=== PATIENT | male | born 1985 | race Caucasian/White ===

== ENCOUNTER 2016-08-08 21:49 | Emergency (ER) | payer OTHER ==
[~2016-08-08] VITALS: Ht 172.7 cm; Wt 88.5 kg
[~2016-08-08 21:49] MED LIST: BACTRIM,SEPT1 TABLET PO; LORTAB 5-325 M1 EACH PO; METHADONE10 MG PO; NAPROSYN500 MG PO; NOHOMEMEDS; NORCO 5/3251 TABLET PO; ULTRACET1 TABLET PO
[2016-08-08 22:38] LABS: HEMATOCRIT 37.6 % (38.0-50.0); MCH 33.3 PG (29.0-34.0); MCHC 33.2 G/DL (30.0-36.0); MCV 100.3 FL (86-99); MEAN PLAT.VOLUME 10.7 uM^3 (9.0-12.4); PLATELET COUNT 235 K/uL (156-360); RBC DIS.WIDTH-CV 12.1 % (11.8-14.6); RBC DIS.WIDTH-SD 43.3 % (39-53); RED BLOOD COUNT 3.75 M/uL (4.00-5.50); WHITE BLOOD COUNT 6.1 K/uL (4.1-10.2)
[2016-08-08 22:53] LABS: CHLORIDE 106 mEq/L (99-109); POTASSIUM 4.1 mEq/L (3.7-5.4); SODIUM 141 mEq/L (136-147)
[2016-08-08 22:54] LABS: GLUCOSE 85 mg/dL (70-99)
[2016-08-08 22:56] LABS: ANION GAP 10 MEQ/L (2-14)
[2016-08-08 22:58] LABS: GFR ESTIMATE (CALCULATED) > 59 mL/min/
[2016-08-08 22:59] LABS: UREA NITROGEN (BUN) 14 mg/dL (9-23)
[2016-08-08 23:04] LABS: TROP-I INTERPRETATION NEGATIVE; TROPONIN-I < 0.01 ng/mL (0.0-0.30)
[2016-08-09 00:08] LABS: D-DIMER ELISA 0.36 mg/L FEU (< 0.57)
[2016-08-09 00:42] LABS: TROP-I INTERPRETATION NEGATIVE; TROPONIN-I < 0.01 ng/mL (0.0-0.30)
[2016-08-09] MEDS ORDERED: NAPROXEN500 MG PO (00:48)
[2016-08-09] MEDS ORDERED: VENTOLIN HFA18 GM IH (00:48)
[2016-08-09 00:55] VITALS: BP 123/66
[2016-08-09 01:07] LABS: INFLUENZA A VIRAL ANTIGEN NEGATIVE; INFLUENZA B VIRAL ANTIGEN NEGATIVE
== END 2016-08-09 01:04 | disposition home or self-care (01) ==
LOC: EME 21:49
PROVIDERS: Emergency Medicine
DX: J45.909 Unspecified asthma, uncomplicated (principal); R07.89 Other chest pain; F17.200 Nicotine dependence, unspecified, uncomplicated
CPT/HCPCS: 71020; 80048; 84484; 85027; 85379; 87502; 93005; 99281; 99285

== ENCOUNTER 2016-08-12 17:12 | Emergency (ER) | payer OTHER ==
[~2016-08-12] VITALS: Ht 175.3 cm; Wt 89.5 kg
[~2016-08-12 17:12] MED LIST changes: +NAPROXEN500 MG PO; +VENTOLIN HFA18 GM IH
[2016-08-12 18:03] LABS: HEMATOCRIT 36.9 % (38.0-50.0); MCH 33.1 PG (29.0-34.0); MCHC 32.8 G/DL (30.0-36.0); MCV 100.8 FL (86-99); MEAN PLAT.VOLUME 10.5 uM^3 (9.0-12.4); PLATELET COUNT 218 K/uL (156-360); RBC DIS.WIDTH-CV 12.1 % (11.8-14.6); RBC DIS.WIDTH-SD 43.7 % (39-53); RED BLOOD COUNT 3.66 M/uL (4.00-5.50); WHITE BLOOD COUNT 6.1 K/uL (4.1-10.2)
[2016-08-12 18:20] LABS: CHLORIDE 106 mEq/L (99-109); POTASSIUM 4.4 mEq/L (3.7-5.4); SODIUM 138 mEq/L (136-147)
[2016-08-12 18:22] LABS: GLUCOSE 102 mg/dL (70-99)
[2016-08-12 18:23] LABS: ANION GAP 7 MEQ/L (2-14)
[2016-08-12 18:26] LABS: GFR ESTIMATE (CALCULATED) > 59 mL/min/; TROP-I INTERPRETATION NEGATIVE; TROPONIN-I < 0.01 ng/mL (0.0-0.30)
[2016-08-12 18:27] LABS: UREA NITROGEN (BUN) 18 mg/dL (9-23)
[2016-08-12] MEDS ORDERED: FLEXERIL10 MG PO (18:34)
[2016-08-12] MEDS ORDERED: ULTRAM50 MG PO (18:34)
[2016-08-12 18:50] VITALS: BP 128/65
== END 2016-08-12 18:50 | disposition home or self-care (01) ==
LOC: EME 17:12
PROVIDERS: Physician Assistant
DX: R07.89 Other chest pain (principal); F17.200 Nicotine dependence, unspecified, uncomplicated
CPT/HCPCS: 71020; 80048; 84484; 85027; 93005; 99281; 99283

== ENCOUNTER 2016-08-17 01:40 | Emergency (ER) | payer OTHER ==
[~2016-08-17] VITALS: Ht 175.3 cm; Wt 90.3 kg
[~2016-08-17 01:40] MED LIST changes: +FLEXERIL10 MG PO; +ULTRAM50 MG PO
[2016-08-17 02:05] LABS: EOSINOPHIL (%) 1.5 % (0-5); EOSINOPHIL COUNT 0.1 K/uL (0-0.3); HEMATOCRIT 36.9 % (38.0-50.0); IMMATURE GRANULOCYTE (%) 0.2 % (0.0-0.7); IMMATURE GRANULOCYTE COUNT 0.1 K/uL; LYMPHOCYTE COUNT 1.9 K/uL (1.0-2.8); MCHC 33.3 G/DL (30.0-36.0); MCV 98.9 FL (86-99); MEAN PLAT.VOLUME 10.2 uM^3 (9.0-12.4); MONOCYTE (%) 5.8 % (3-12); MONOCYTE COUNT 0.4 K/uL (0-0.8); NEUTROPHIL (%) 60.1 % (45-76); NEUTROPHIL COUNT 3.6 K/uL (1.8-6.4); PLATELET COUNT 227 K/uL (156-360); RBC DIS.WIDTH-CV 11.9 % (11.8-14.6); RBC DIS.WIDTH-SD 41.4 % (39-53); RED BLOOD COUNT 3.73 M/uL (4.00-5.50)
[2016-08-17 02:15] LABS: CHLORIDE 108 mEq/L (99-109); POTASSIUM 4.3 mEq/L (3.7-5.4); SODIUM 142 mEq/L (136-147)
[2016-08-17 02:17] LABS: GLUCOSE 82 mg/dL (70-99)
[2016-08-17 02:19] LABS: ANION GAP 11 MEQ/L (2-14)
[2016-08-17 02:21] LABS: GFR ESTIMATE (CALCULATED) > 59 mL/min/
[2016-08-17 02:22] LABS: UREA NITROGEN (BUN) 17 mg/dL (9-23)
[2016-08-17 02:25] LABS: TROP-I INTERPRETATION NEGATIVE; TROPONIN-I < 0.01 ng/mL (0.0-0.30)
[2016-08-17] MEDS ORDERED: NEXIUM20 MG PO (02:48)
[2016-08-17] MEDS ORDERED: NAPROSYN500 MG PO (02:48)
[2016-08-17 02:56] VITALS: BP 114/61
== END 2016-08-17 02:57 | disposition home or self-care (01) ==
LOC: EME 01:40
PROVIDERS: Personal Emergency Response Attendant
DX: S29.011A Strain of muscle and tendon of front wall of thorax, initial encounter (principal); X58.XXXA Exposure to other specified factors, initial encounter; K21.9 Gastro-esophageal reflux disease without esophagitis; F17.200 Nicotine dependence, unspecified, uncomplicated
CPT/HCPCS: 71020; 80048; 84484; 85025; 93005; 99281; 99284

== ENCOUNTER 2016-08-23 05:40 | Emergency (ER) | payer OTHER ==
[~2016-08-23] VITALS: Ht 175.3 cm; Wt 90.4 kg
[~2016-08-23 05:40] MED LIST changes: +NEXIUM20 MG PO
[2016-08-23 06:00] LABS: HEMATOCRIT 37.7 % (38.0-50.0); MCH 32.7 PG (29.0-34.0); MCHC 33.2 G/DL (30.0-36.0); MCV 98.7 FL (86-99); MEAN PLAT.VOLUME 10.5 uM^3 (9.0-12.4); PLATELET COUNT 230 K/uL (156-360); RBC DIS.WIDTH-CV 12.4 % (11.8-14.6); RBC DIS.WIDTH-SD 42.6 % (39-53); RED BLOOD COUNT 3.82 M/uL (4.00-5.50); WHITE BLOOD COUNT 4.9 K/uL (4.1-10.2)
[2016-08-23 06:09] LABS: CHLORIDE 108 mEq/L (99-109); POTASSIUM 4.3 mEq/L (3.7-5.4); SODIUM 143 mEq/L (136-147)
[2016-08-23 06:11] LABS: GLUCOSE 98 mg/dL (70-99)
[2016-08-23 06:12] LABS: ANION GAP 8 MEQ/L (2-14)
[2016-08-23 06:14] LABS: GFR ESTIMATE (CALCULATED) > 59 mL/min/
[2016-08-23 06:15] LABS: UREA NITROGEN (BUN) 23 mg/dL (9-23)
[2016-08-23 06:51] LABS: D-DIMER ELISA 0.51 mg/L FEU (< 0.57)
[2016-08-23 07:05] LABS: TROP-I INTERPRETATION NEGATIVE; TROPONIN-I 0.01 ng/mL (0.0-0.30)
[2016-08-23] MEDS ORDERED: ZITHROMAX500 MG PO (07:25)
[2016-08-23] MEDS ORDERED: MEDROL DOSEPAK4 MG PO (07:25)
[2016-08-23] MEDS ORDERED: PROAIR HFA8.5 GM IH (07:25)
[2016-08-23 09:00] VITALS: BP 122/68
== END 2016-08-23 09:00 | disposition home or self-care (01) ==
LOC: EME 05:40
DX: J44.0 Chronic obstructive pulmonary disease with (acute) lower respiratory infection (principal); J20.9 Acute bronchitis, unspecified; F17.200 Nicotine dependence, unspecified, uncomplicated; Z71.6 Tobacco abuse counseling
CPT/HCPCS: 71020; 80048; 83880; 84484; 85027; 85379; 94640; 99281; 99284; J7512

== ENCOUNTER 2016-08-25 19:18 | Emergency (ER) | payer OTHER ==
[~2016-08-25] VITALS: Ht 175.3 cm; Wt 92.6 kg
[~2016-08-25 19:18] MED LIST changes: +MEDROL DOSEPAK4 MG PO; +PROAIR HFA8.5 GM IH; +ZITHROMAX500 MG PO
[2016-08-25 20:33] LABS: D-DIMER ELISA 0.52 mg/L FEU (< 0.57)
[2016-08-25 21:03] VITALS: BP 142/76
== END 2016-08-25 21:04 | disposition home or self-care (01) ==
LOC: EME 19:18
PROVIDERS: Nurse Practitioner Family
DX: R09.1 Pleurisy (principal); S29.011A Strain of muscle and tendon of front wall of thorax, initial encounter; J44.9 Chronic obstructive pulmonary disease, unspecified; F17.200 Nicotine dependence, unspecified, uncomplicated
CPT/HCPCS: 71020; 85379; 99281; 99283

== ENCOUNTER 2016-09-01 20:10 | Emergency (ER) | payer OTHER ==
[~2016-09-01] VITALS: Ht 175.3 cm; Wt 92.5 kg
[2016-09-01 20:45] LABS: HEMATOCRIT 40.1 % (38.0-50.0); MCH 33.2 PG (29.0-34.0); MCHC 32.9 G/DL (30.0-36.0); MCV 100.8 FL (86-99); MEAN PLAT.VOLUME 10.2 uM^3 (9.0-12.4); PLATELET COUNT 261 K/uL (156-360); RBC DIS.WIDTH-CV 12.2 % (11.8-14.6); RBC DIS.WIDTH-SD 44.1 % (39-53); RED BLOOD COUNT 3.98 M/uL (4.00-5.50)
[2016-09-01 20:49] LABS: CHLORIDE 105 mEq/L (99-109); POTASSIUM 5.1 mEq/L (3.7-5.4); SODIUM 141 mEq/L (136-147)
[2016-09-01 20:51] LABS: GLUCOSE 89 mg/dL (70-99)
[2016-09-01 20:52] LABS: ANION GAP 10 MEQ/L (2-14)
[2016-09-01 20:55] LABS: GFR ESTIMATE (CALCULATED) > 59 mL/min/; UREA NITROGEN (BUN) 18 mg/dL (9-23)
[2016-09-01 20:57] LABS: ADD MIUA? NO; BILIRUBIN NEGATIVE; BLOOD NEGATIVE; COLOR YELLOW ((YELLOW)); GLUCOSE (STRIP) NEGATIVE; KETONES NEGATIVE; LEUKOCYTES NEGATIVE; NITRITE NEGATIVE; PROTEIN (STRIP) NEGATIVE; SPECIFIC GRAVITY 1.015 (1.000-1.030); UCUL ADDED? NO; UROBILINOGEN 0.2 MG/DL (0.2-1.0)
[2016-09-01] MEDS ORDERED: ZOFRAN ODT4 MG PO (22:48)
[2016-09-01] MEDS ORDERED: MOTRIN800 MG PO (22:48)
[2016-09-01 22:57] VITALS: BP 124/71
== END 2016-09-01 22:58 | disposition home or self-care (01) ==
LOC: EME 20:10
DX: R10.32 Left lower quadrant pain (principal); R11.0 Nausea; J44.9 Chronic obstructive pulmonary disease, unspecified; F17.200 Nicotine dependence, unspecified, uncomplicated
CPT/HCPCS: 80048; 81003; 85027; 99281; 99284; J1885

== ENCOUNTER 2016-09-06 17:23 | Emergency (ER) | payer OTHER ==
[~2016-09-06] VITALS: Ht 175.3 cm; Wt 92.3 kg
[~2016-09-06 17:23] MED LIST changes: +MOTRIN800 MG PO; +ZOFRAN ODT4 MG PO
[2016-09-06 18:45] LABS: HEMATOCRIT 37.4 % (38.0-50.0); MCH 32.6 PG (29.0-34.0); MCHC 32.6 G/DL (30.0-36.0); MEAN PLAT.VOLUME 10.7 uM^3 (9.0-12.4); PLATELET COUNT 224 K/uL (156-360); RBC DIS.WIDTH-CV 12.2 % (11.8-14.6); RBC DIS.WIDTH-SD 43.1 % (39-53); RED BLOOD COUNT 3.74 M/uL (4.00-5.50)
[2016-09-06 18:55] LABS: CHLORIDE 107 mEq/L (99-109); POTASSIUM 4.4 mEq/L (3.7-5.4); SODIUM 140 mEq/L (136-147)
[2016-09-06 18:56] LABS: GLUCOSE 107 mg/dL (70-99)
[2016-09-06 18:58] LABS: ANION GAP 7 MEQ/L (2-14)
[2016-09-06 19:01] LABS: GFR ESTIMATE (CALCULATED) > 59 mL/min/; UREA NITROGEN (BUN) 20 mg/dL (9-23)
[2016-09-06 19:01] LABS: ADD MIUA? YES; BILIRUBIN NEGATIVE; BLOOD NEGATIVE; COLOR YELLOW ((YELLOW)); GLUCOSE (STRIP) NEGATIVE; KETONES 5; LEUKOCYTES NEGATIVE; NITRITE NEGATIVE; PROTEIN (STRIP) 30; SPECIFIC GRAVITY 1.032 (1.000-1.030)
[2016-09-06 19:20] LABS: BACTERIA NONE SEEN /HPF; CASTS PRESENT /LPF; CRYSTALS PRESENT; EPITHELIAL CELLS NONE SEEN /HPF; MUCUS 3+ /LPF; RED BLOOD CELLS NONE SEEN /HPF (0-5); UCUL ADDED? NO; WHITE BLOOD CELLS NONE SEEN /HPF (0-5)
[2016-09-06 19:21] LABS: AMORPHOUS URATES CRYSTALS 1+; CALCIUM OXALATE CRYSTALS 3+ /HPF; HYALINE CASTS 0-5 /LPF
[2016-09-06 19:36] LABS: TOTAL BILIRUBIN 0.3 mg/dL (0.0-1.0)
[2016-09-06 19:37] LABS: ALKALINE PHOSPHATASE 66 IU/L (3-129)
[2016-09-06 19:40] LABS: DIRECT BILIRUBIN 0.2 mg/dL (0.0-0.3)
[2016-09-06 19:41] LABS: LIPASE 159 U/L (1.0-51.0)
[2016-09-06] MEDS ORDERED: ZOFRAN ODT4 MG PO (22:45)
[2016-09-06] MEDS ORDERED: INDOCIN25 MG PO (22:46)
[2016-09-06 23:19] VITALS: BP 108/80
== END 2016-09-06 23:19 | disposition home or self-care (01) ==
LOC: EME 17:23
DX: R10.32 Left lower quadrant pain (principal); E86.0 Dehydration; R11.0 Nausea; K59.00 Constipation, unspecified; Z79.891 Long term (current) use of opiate analgesic; F17.200 Nicotine dependence, unspecified, uncomplicated
CPT/HCPCS: 74176; 80048; 80076; 81003; 83690; 85027; 99281; 99284

== ENCOUNTER 2016-09-11 18:13 | Emergency (ER) | payer OTHER ==
[~2016-09-11] VITALS: Ht 175.3 cm; Wt 91.4 kg
[~2016-09-11 18:13] MED LIST changes: +INDOCIN25 MG PO
[2016-09-11 18:54] LABS: HEMATOCRIT 39.3 % (38.0-50.0); MCH 32.6 PG (29.0-34.0); MCHC 32.8 G/DL (30.0-36.0); MCV 99.2 FL (86-99); MEAN PLAT.VOLUME 10.8 uM^3 (9.0-12.4); PLATELET COUNT 263 K/uL (156-360); RBC DIS.WIDTH-CV 11.8 % (11.8-14.6); RBC DIS.WIDTH-SD 42.9 % (39-53); RED BLOOD COUNT 3.96 M/uL (4.00-5.50); WHITE BLOOD COUNT 7.1 K/uL (4.1-10.2)
[2016-09-11 18:55] LABS: BILIRUBIN NEGATIVE; BLOOD NEGATIVE; COLOR AMBER ((YELLOW)); GLUCOSE (STRIP) NEGATIVE; KETONES 5; LEUKOCYTES NEGATIVE; NITRITE NEGATIVE; PROTEIN (STRIP) 30; SPECIFIC GRAVITY 1.032 (1.000-1.030)
[2016-09-11 18:58] LABS: ADD MIUA? NO; UCUL ADDED? NO
[2016-09-11 19:05] LABS: CHLORIDE 103 mEq/L (99-109); SODIUM 139 mEq/L (136-147)
[2016-09-11 19:08] LABS: GLUCOSE 73 mg/dL (70-99)
[2016-09-11 19:09] LABS: ANION GAP 9 MEQ/L (2-14)
[2016-09-11 19:10] LABS: TOTAL BILIRUBIN 0.3 mg/dL (0.0-1.0)
[2016-09-11 19:11] LABS: ALKALINE PHOSPHATASE 74 IU/L (3-129); GFR ESTIMATE (CALCULATED) > 59 mL/min/
[2016-09-11 19:12] LABS: UREA NITROGEN (BUN) 20 mg/dL (9-23)
[2016-09-11 19:15] LABS: LIPASE 6 U/L (1.0-51.0)
[2016-09-11 20:29] LABS: AMYLASE 20 IU/L (1-118)
[2016-09-11 20:41] LABS: ADD MEDTOX COMMENT Y; AMPHETAMINE NEGATIVE (500 ng/mL); BARBITURATES NEGATIVE (200 ng/mL); BENZODIAZEPINES NEGATIVE (150 ng/mL); COCAINE PRESUMPTIVE POSITIVE (150 ng/mL); INTERNAL CONTROLS VALID? YES; METHADONE PRESUMPTIVE POSITIVE (200 ng/mL); METHAMPHETAMINE NEGATIVE (500 ng/mL); OPIATES (MORPHINE) NEGATIVE (100 ng/mL); OXYCODONE NEGATIVE (100 ng/mL); PHENCYCLIDINE NEGATIVE (25 ng/mL); PROPOXYPHENE NEGATIVE (300 ng/mL); THC CANNABINOIDS NEGATIVE (50 ng/mL); TRICYCLIC ANTIDEPRESSANTS NEGATIVE (300 ng/mL)
[2016-09-11] MEDS ORDERED: SKELAXIN800 MG PO (21:04)
[2016-09-11] MEDS ORDERED: ZOFRAN4 MG PO (21:04)
[2016-09-11] MEDS ORDERED: TORADOL10 MG PO (21:04)
[2016-09-11 21:34] VITALS: BP 121/68
== END 2016-09-11 21:47 | disposition home or self-care (01) ==
LOC: EME 18:13
DX: R10.9 Unspecified abdominal pain (principal); F19.10 Other psychoactive substance abuse, uncomplicated; J44.9 Chronic obstructive pulmonary disease, unspecified; Z87.891 Personal history of nicotine dependence
CPT/HCPCS: 74177; 80053; 81003; 82150; 83690; 84999; 85027; 99281; 99285; J1200; J1885; J2405; J7030

== ENCOUNTER 2016-09-23 13:33 | Emergency (ER) | payer OTHER ==
[~2016-09-23] VITALS: Ht 175.3 cm; Wt 92.1 kg
[~2016-09-23 13:33] MED LIST changes: +SKELAXIN800 MG PO; +TORADOL10 MG PO; +ZOFRAN4 MG PO
[2016-09-23 13:38] VITALS: BP 117/69
[2016-09-23 14:35] LABS: HEMATOCRIT 37.3 % (38.0-50.0); MCH 32.8 PG (29.0-34.0); MCHC 32.4 G/DL (30.0-36.0); MCV 101.1 FL (86-99); MEAN PLAT.VOLUME 10.5 uM^3 (9.0-12.4); PLATELET COUNT 244 K/uL (156-360); RBC DIS.WIDTH-CV 11.9 % (11.8-14.6); RBC DIS.WIDTH-SD 44.2 % (39-53); RED BLOOD COUNT 3.69 M/uL (4.00-5.50); WHITE BLOOD COUNT 5.7 K/uL (4.1-10.2)
[2016-09-23 14:42] LABS: ADD MIUA? YES; BILIRUBIN NEGATIVE; BLOOD NEGATIVE; COLOR YELLOW ((YELLOW)); GLUCOSE (STRIP) NEGATIVE; KETONES NEGATIVE; LEUKOCYTES TRACE; NITRITE NEGATIVE; PROTEIN (STRIP) 30; SPECIFIC GRAVITY 1.026 (1.000-1.030); UROBILINOGEN 0.2 MG/DL (0.2-1.0)
[2016-09-23 14:44] LABS: CHLORIDE 105 mEq/L (99-109); POTASSIUM 5.3 mEq/L (3.7-5.4); SODIUM 139 mEq/L (136-147)
[2016-09-23 14:45] LABS: AMYLASE 20 IU/L (1-118)
[2016-09-23 14:46] LABS: GLUCOSE 93 mg/dL (70-99)
[2016-09-23 14:48] LABS: ANION GAP 10 MEQ/L (2-14); TOTAL BILIRUBIN 0.2 mg/dL (0.0-1.0)
[2016-09-23 14:50] LABS: ALKALINE PHOSPHATASE 60 IU/L (3-129); GFR ESTIMATE (CALCULATED) > 59 mL/min/
[2016-09-23 14:51] LABS: UREA NITROGEN (BUN) 25 mg/dL (9-23)
[2016-09-23 14:54] LABS: LIPASE 7 U/L (1.0-51.0)
[2016-09-23 14:56] LABS: BACTERIA NONE SEEN /HPF; EPITHELIAL CELLS RARE /HPF; HYALINE CASTS 0-5 /LPF; MUCUS TRACE /LPF; RED BLOOD CELLS NONE SEEN /HPF (0-5); UCUL ADDED? NO; WHITE BLOOD CELLS 0-5 /HPF (0-5)
== END 2016-09-23 15:30 | disposition left against medical advice (07) ==
LOC: EME 13:33
PROVIDERS: Physician Assistant
DX: R10.12 Left upper quadrant pain (principal); Z87.891 Personal history of nicotine dependence
CPT/HCPCS: 80053; 81003; 82150; 83690; 85027; 99281; 99283; J1885

== ENCOUNTER 2016-10-06 02:11 | Emergency (ER) | payer OTHER ==
[~2016-10-06] VITALS: Ht 175.3 cm; Wt 92.4 kg
[2016-10-06 03:30] LABS: HEMATOCRIT 34.8 % (38.0-50.0); MCH 32.5 PG (29.0-34.0); MCHC 32.5 G/DL (30.0-36.0); MEAN PLAT.VOLUME 10.9 uM^3 (9.0-12.4); PLATELET COUNT 256 K/uL (156-360); RBC DIS.WIDTH-CV 11.8 % (11.8-14.6); RBC DIS.WIDTH-SD 43.1 % (39-53); RED BLOOD COUNT 3.48 M/uL (4.00-5.50); WHITE BLOOD COUNT 6.4 K/uL (4.1-10.2)
[2016-10-06] MEDS ORDERED: OMEPRAZOLE20 M2 PO (03:43)
[2016-10-06 03:44] LABS: CHLORIDE 107 mEq/L (99-109); SODIUM 142 mEq/L (136-147)
[2016-10-06 03:44] LABS: D-DIMER ELISA 0.86 mg/L FEU (< 0.57)
[2016-10-06 03:45] LABS: GLUCOSE 73 mg/dL (70-99)
[2016-10-06 03:47] LABS: ANION GAP 8 MEQ/L (2-14)
[2016-10-06 03:48] LABS: TROP-I INTERPRETATION NEGATIVE; TROPONIN-I < 0.01 ng/mL (0.0-0.30)
[2016-10-06 03:49] LABS: GFR ESTIMATE (CALCULATED) > 59 mL/min/
[2016-10-06 03:50] LABS: UREA NITROGEN (BUN) 13 mg/dL (9-23)
[2016-10-06 03:52] LABS: LIPASE 11 U/L (1.0-51.0)
[2016-10-06] MEDS ORDERED: NORCO 5/3251 TABLET PO (04:52)
[2016-10-06 05:07] VITALS: BP 127/75
[2016-10-07] MEDS ORDERED: BENTYL20 MG PO (16:09)
[2016-10-07] MEDS ORDERED: CARAFATE1 GM PO (17:12)
== END 2016-10-06 05:10 | disposition home or self-care (01) ==
LOC: EME 02:11
DX: R10.12 Left upper quadrant pain (principal); G89.29 Other chronic pain; R04.2 Hemoptysis; F41.9 Anxiety disorder, unspecified; K25.9 Gastric ulcer, unspecified as acute or chronic, without hemorrhage or perforation; D64.9 Anemia, unspecified; J44.9 Chronic obstructive pulmonary disease, unspecified; Z87.891 Personal history of nicotine dependence
CPT/HCPCS: 71020; 71275; 80048; 83690; 84484; 85027; 85379; 93005; 99281; 99284; J2060

== ENCOUNTER 2016-10-07 13:47 | Emergency (ER) | payer OTHER ==
[~2016-10-07] VITALS: Ht 175.3 cm; Wt 93.6 kg
[~2016-10-07 13:47] MED LIST changes: +OMEPRAZOLE20 M2 PO
[2016-10-07 14:46] LABS: MCH 32.6 PG (29.0-34.0); MCHC 33.1 G/DL (30.0-36.0); MCV 98.5 FL (86-99); MEAN PLAT.VOLUME 10.4 uM^3 (9.0-12.4); PLATELET COUNT 224 K/uL (156-360); RBC DIS.WIDTH-CV 11.6 % (11.8-14.6); RBC DIS.WIDTH-SD 42.2 % (39-53); RED BLOOD COUNT 3.25 M/uL (4.00-5.50); WHITE BLOOD COUNT 7.7 K/uL (4.1-10.2)
[2016-10-07 14:54] LABS: CHLORIDE 106 mEq/L (99-109); POTASSIUM 4.1 mEq/L (3.7-5.4); SODIUM 139 mEq/L (136-147)
[2016-10-07 14:57] LABS: ANION GAP 7 MEQ/L (2-14); GLUCOSE 92 mg/dL (70-99)
[2016-10-07 14:58] LABS: TOTAL BILIRUBIN 0.2 mg/dL (0.0-1.0)
[2016-10-07 14:59] LABS: ALKALINE PHOSPHATASE 58 IU/L (3-129)
[2016-10-07 15:00] LABS: GFR ESTIMATE (CALCULATED) > 59 mL/min/
[2016-10-07 15:01] LABS: UREA NITROGEN (BUN) 15 mg/dL (9-23)
[2016-10-07 15:24] LABS: ADD MIUA? NO; BILIRUBIN NEGATIVE; BLOOD NEGATIVE; COLOR STRAW ((YELLOW)); GLUCOSE (STRIP) NEGATIVE; KETONES NEGATIVE; LEUKOCYTES NEGATIVE; NITRITE NEGATIVE; PROTEIN (STRIP) NEGATIVE; SPECIFIC GRAVITY 1.004 (1.000-1.030); UCUL ADDED? NO; UROBILINOGEN 0.2 MG/DL (0.2-1.0)
[2016-10-07] MEDS ORDERED: BENTYL20 MG PO (16:09)
[2016-10-07] MEDS ORDERED: CARAFATE1 GM PO (17:12)
[2016-10-07 17:29] VITALS: BP 101/54
== END 2016-10-07 17:32 | disposition home or self-care (01) ==
LOC: EME 13:47
DX: R10.9 Unspecified abdominal pain (principal); R71.8 Other abnormality of red blood cells; R04.2 Hemoptysis; R42 Dizziness and giddiness; R11.0 Nausea; Z87.891 Personal history of nicotine dependence
CPT/HCPCS: 74000; 80053; 81003; 85027; 99281; 99284; J0500

== ENCOUNTER 2016-11-08 10:21 | Emergency (ER) | payer OTHER ==
[~2016-11-08] VITALS: Ht 175.3 cm; Wt 93.4 kg
[~2016-11-08 10:21] MED LIST changes: +BENTYL20 MG PO; +CARAFATE1 GM PO
[2016-11-08 11:57] VITALS: BP 109/65
== END 2016-11-08 11:58 | disposition home or self-care (01) ==
LOC: EME 10:21
DX: R07.9 Chest pain, unspecified (principal); Z87.891 Personal history of nicotine dependence
CPT/HCPCS: 93005; 99281; 99284